=== PATIENT | male | born 1960 | race Caucasian/White ===

== ENCOUNTER 2023-07-10 09:13 | Outpatient (CLI) | payer OTHER, SELFPAY | END 2023-07-10 09:14 | disposition home or self-care (01) | PROVIDERS: PCP Family Medicine; Visit Provider Family Medicine | DX: E78.00 Pure hypercholesterolemia, unspecified (principal); N40.2 Nodular prostate without lower urinary tract symptoms; Z13.228 Encounter for screening for other metabolic disorders; Z12.5 Encounter for screening for malignant neoplasm of prostate | CPT/HCPCS: 80053; 80061; G0103 ==

== ENCOUNTER 2023-07-25 11:48 | Outpatient (CLI) | payer OTHER, SELFPAY ==
--- NOTE | 2023-07-25 13:06 | W.ANESCHARGE ---
Anesthesia Charges Start Date/Time Anesthesia Start Date: 07/25/23 Anesthesia Start Time: 12:54 Stop Date/Time Anesthesia Stop Date: 07/25/23 Anesthesia Stop Time: 13:23
--- NOTE | 2023-07-25 13:26 | W.ANESCHARGE ---
Anesthesia Charges Start Date/Time Anesthesia Start Date: 07/25/23 Anesthesia Start Time: 12:54 Stop Date/Time Anesthesia Stop Date: 07/25/23 Anesthesia Stop Time: 13:23
== END 2023-07-25 11:49 | disposition home or self-care (01) ==
LOC: OP CLINIC 11:48
PROVIDERS: PCP Family Medicine; Visit Provider Internal Medicine
DX: Z12.11 Encounter for screening for malignant neoplasm of colon (principal); K63.5 Polyp of colon
CPT/HCPCS: 00811; 45380; 88305; J2704

== ENCOUNTER 2024-07-21 08:15 | Outpatient (CLI) | payer OTHER, SELFPAY | END 2024-07-21 08:16 | disposition home or self-care (01) | LOC: NFLDREF 07-28 03:12 | PROVIDERS: PCP Family Medicine; Referring Provider Family Medicine; Visit Provider Family Medicine | DX: E78.00 Pure hypercholesterolemia, unspecified (principal); Z12.5 Encounter for screening for malignant neoplasm of prostate | CPT/HCPCS: 80061; G0103 ==

== ENCOUNTER 2024-08-10 13:42 | Outpatient (CLI) | payer OTHER, SELFPAY ==
[2024-08-10 14:23] VITALS: BP 152/86; PULSE 89; RESP 18
--- NOTE | 2024-08-10 14:37 | W.PM.STED ---
Stress Test Note Date Date of test: 08/10/24 Providers Primary care provider: Seven Allison Stress test physician: Brock Antonio Stress Test Note Stress test ordered: Stress Echo Indication for test: Chest pain Results discussion: Patient is a very nice 64-year-old gentleman who presents for the above scheduled test, discussion of the risks benefits and side effects occurred, he accepts these would like to proceed. Cardiac stress test medical history form is reviewed in detail. Pretest EKG shows normal sinus rhythm, with a ventricular rate of 75 and a BP of 128/70. No significant ST wave changes suggestive of ischemia, patient is exercised for a total time of 10 minutes 10 seconds, test is terminated because of fulfillment of protocol, he did not develop any chest pain shortness of breath or chest pain. During the test there was some ST wave depression of almost 2 mm that occurred inferiorly, no reciprocal changes are noted. Impression: Indeterminate electrographic portion of stress echo, with some is mild changes, patient did not develop any subjective symptoms, I did not see any evidence of echo changes on the preliminary. Good functional status. Follow up suggested: Await cardiology read of echo portion of stress test, clinical correlation with this will be needed, I suspect that this will be normal. Patient left this testing facility in good condition.
== END 2024-08-10 13:43 | disposition home or self-care (01) ==
PROVIDERS: PCP Family Medicine; Visit Provider Family Medicine
DX: R07.9 Chest pain, unspecified (principal); R06.09 Other forms of dyspnea; R53.83 Other fatigue
CPT/HCPCS: 93016; 93325; 93351